=== PATIENT | female | born 1935 | race Caucasian/White ===

== ENCOUNTER 2016-05-09 23:55 | Inpatient (IN) | payer MEDICARE, OTHER ==
--- NOTE | ~2016-05-09 | HP ---
History And Physical [address] [place]. [address] NAME: GONZALEZ OVIEDO : 31 STATUS : ADM Pam PAT#: [id number] AGE: 81 ADM/REG DATE : 05/09/16 MR#: [id number] REPORT SERV DATE: 05/10/16 DICTATED BY: DELIA FLOYD DATE: 05/10/16 REPORT STATUS : Draft TRANSCRIBED BY: MODLalit DATE: 05/10/16 DATE OF ADMISSION: 05/09/2016 CHIEF COMPLAINT: An 81-year-old female presenting with cough. HISTORY OF PRESENTING ILLNESS: The patient's history was obtained through careful interview with the patient and daughter coupled with review of [facility] medical records. The patient first began to develop a cough just on 05/08/2016; it was productive of a clear but thick and stringy sputum. She has had increasing dyspnea on exertion as well. She has developed subjective fevers and chills, lightheadedness, dizziness, a decreased appetite with dryness of her mouth. Finally, on the day of admission, she became momentarily incoherent and states "I just felt I was in the twilight zone." She describes being achy all over with myalgias. She describes chronic back pain/lower back pain without radiation or sciatica, midline, 6/10 in severity, that comes and goes. She has chronic lower extremity edema that is no worse than usual. REVIEW OF SYSTEMS: Otherwise, a 14-point review of systems was obtained and was negative. PAST MEDICAL HISTORY: 1. Sarcoidosis with mediastinal lymphadenopathy. 2. Atrial fibrillation. 3. Pneumonia, 10/2015. 4. Diastolic congestive heart failure with chronic lower extremity edema. 5. Urinary tract infection. 6. Thoracic aortic aneurysm. 7. Bronchiectasis. 8. Interstitial fibrosis. 9. Sjogren's. 10.Hypothyroidism. 11.Colon polyps. PAST SURGICAL HISTORY: 1. Back surgery x3. 2. Hysterectomy. ALLERGIES: TO NABUMETONE, TRAMADOL, VIOXX, AND CELEBREX. History And Physical [address] [address] NAME: GONZALEZ OVIEDO : 31 STATUS : ADM Pam PAT#: [id number] AGE: 81 ADM/REG DATE : 05/09/16 MR#: [id number] REPORT SERV DATE: 05/10/16 DICTATED BY: DELIA FLOYD DATE: 05/10/16 REPORT STATUS : Draft TRANSCRIBED BY: TYLER DATE: 05/10/16 SOCIAL HISTORY: Quit smoking in the 1980s. No alcohol abuse. Lives on [place], [place], at [facility]. She ambulates with a walker. Has one daughter. Her son lives in [place]. FAMILY HISTORY: Includes heart disease. CURRENT MEDICATIONS: Include: 1. Eliquis 5 mg p.o. b.i.d. 2. Pulmicort inhaled twice a day. 3. Calcium with vitamin D. 4. Welchol 625 mg p.o. daily. 5. Colace. 6. Eyedrops. 7. Flovent. 8. Lasix 20 mg p.o. daily. 9. Avapro 75 mg p.o. b.i.d. 10.Levothyroxine 100 mcg p.o. daily. 11.Lidocaine patch. 12.Claritin 10 mg p.o. daily. 13.Mobic 7.5 mg p.o. daily. 14.Metoprolol 12.5 mg p.o. b.i.d. 15.Potassium 10 mEq p.o. daily. 16.Prednisone 5 mg p.o. daily. 17.Zoloft 25 mg p.o. daily. PHYSICAL EXAMINATION: VITAL SIGNS: Temperature 101.3, pulse 90, blood pressure 171/41, respiratory rate 20, and O2 saturation 94% on room air. GENERAL: A pleasant cooperative female. She appears in some distress secondary to coughing and shortness of breath. HEENT: Pupils equal, round, and reactive to light. No conjunctival pallor. No scleral icterus. Nares are patent. Oropharynx is clear of obstruction. Very dry mucous membranes. NECK: Trachea midline. No thyromegaly. LYMPH: No cervical lymphadenopathy. No supraclavicular lymphadenopathy. RESPIRATORY: Only scattered rhonchi on exam. No significant wheezes. No rhonchi otherwise. No rales. The patient has a nonlabored respiratory effort. CARDIOVASCULAR: Regular rate and rhythm. No murmurs, rubs, or gallops. No extremity edema is appreciated other than chronic changes. ABDOMEN: Soft, nontender, and nondistended. Normal bowel sounds auscultated throughout. No organomegaly. DERMATOLOGICAL: Warm and dry extremities. No pallor. No cyanosis. PSYCHIATRIC: A flat affect but claims to be in a good mood. Alert and oriented x3. LABORATORY DATA: White blood cell count 8.2, hemoglobin 14, hematocrit 41, and platelets 133. Sodium 138, potassium 4.1, chloride 105, bicarb 22, BUN 22, creatinine 2.88, and glucose 89. Procalcitonin negative. Lactic acid 0.8. Influenza negative. Liver enzymes within normal limits. ABG demonstrates pH of 7.45, a PaCO2 of 26, a PaO2 of 66, and a bicarb of 18 on room air. History And Physical [address] [address] NAME: GONZALEZ OVIEDO : 31 STATUS : ADM Pam PAT#: [id number] AGE: 81 ADM/REG DATE : 05/09/16 MR#: [id number] REPORT SERV DATE: 05/10/16 DICTATED BY: DELIA FLOYD DATE: 05/10/16 REPORT STATUS : Draft TRANSCRIBED BY: TYLER DATE: 05/10/16 STUDIES: 1. Chest x-ray, by my own evaluation, shows no acute abnormality and actually improved since 10/2015 chest x-ray. 2. EKG, by my own evaluation, shows atrial fibrillation, left axis deviation, left ventricular hypertrophy. ASSESSMENT AND PLAN: 1. Viral bronchitis, provide supportive care. 2. Fever, place on Tylenol. Negative influenza. Negative procalcitonin. Negative chest x-ray for infiltrate. 3. Chronic diastolic congestive heart failure, follow volume status. 4. Chronic fibrosis of the lungs with bronchiectasis. 5. Chronic atrial fibrillation, on Eliquis. 6. Sarcoidosis. KPL/MODL Delia Floyd M.D. / [id number] CC: Manuela Markham
--- NOTE | ~2016-05-09 | DS ---
Discharge Summary [id number] [place]. [address] NAME: GONZALEZ OVIEDO : 31 STATUS : DIS IN PAT#: [id number] AGE: 81 ADM/REG DATE : 05/10/16 MR#: [id number] REPORT SERV DATE: 05/14/16 DICTATED BY: DATE: REPORT STATUS : Draft TRANSCRIBED BY: MODL DATE: 05/13/16 ADMISSION DATE: 05/10/2016 DISCHARGE DATE: 05/13/2016 DISCHARGE DIAGNOSES: 1. Generalized weakness. 2. Diastolic heart failure. 3. Viral bronchiectasis. 4. Hypertension. 5. Chronic atrial fibrillation. CONSULTING PHYSICIANS: None. IMAGING STUDIES: Multiple portable chest x-rays, the last showing mild bibasilar linear atelectasis. Otherwise, no acute cardiopulmonary abnormality. She did have some cardiomegaly. DISCHARGE MEDICATIONS: Include Eliquis 5 mg p.o. b.i.d., Welchol 625 mg p.o. with lunch, Caltrate 600+ D 600 mg p.o. daily, vitamin D 2000 units p.o. daily, docusate 100 mg p.o. b.i.d., dorzolamide ophthalmic drops one drop t.i.d., Flovent HFA one puff b.i.d., Lasix 20 mg p.o. daily, Atrovent nasal spray two sprays in each nostril b.i.d., Synthroid 100 mcg p.o. daily, Lidoderm patch one patch topical daily, Claritin 10 mg p.o. daily, Mobic 7.5 mg p.o. daily, Lopressor 12.5 mg p.o. b.i.d., Zoloft 25 mg p.o. daily, prednisone 5 mg p.o. daily, budesonide 90 mcg two puffs inhalation b.i.d., Flovent Diskus, DuoNebs every four hours p.r.n. for shortness of breath/wheezing, Tylenol 650 mg p.o. every four hours p.r.n. for temp greater than 101, Zofran 4 mg p.o. sublingual every four hours p.r.n. for nausea, potassium chloride 10 mEq p.o. daily. HOSPITAL COURSE/PROBLEM LIST: 1. Viral bronchitis. Due to the patient's multiple comorbidities and respiratory issues, the patient was admitted for supportive care including nebulization and oxygen therapy. The patient feels like her respiratory status has improved. She is still coughing and has some wheezing; however, overall, she feels better. Her O2 sat is 97% on room air. Respiratory rate is 16. She does again have wheezing in her lung acevedo and I will continue her DuoNebs every four hours p.r.n. as needed. She is in no acute distress at this time and is requesting to go to [facility] for rehabilitation. 2. Diastolic heart failure. Continue the patient's metoprolol 12.5 mg p.o. b.i.d. as well as furosemide 20 mg p.o. daily. The patient is euvolemic at this time. No signs and symptoms of volume overload. 3. Hypertension. We will continue the patient's home medications, metoprolol and furosemide. Her blood pressure has been controlled in the hospital. Her last blood pressure was 123/57. 4. Chronic atrial fibrillation. The patient's heart rate is controlled with metoprolol p.o. and will also continue her Eliquis p.o. 5. Generalized weakness. The patient was evaluated by Physical Therapy and it was recommended for her to go to inpatient rehab. Therefore, we will discharge her to Discharge Summary [address] [address] NAME: GONZALEZ OVIEDO : 31 STATUS : DIS IN PAT#: [id number] AGE: 81 ADM/REG DATE : 05/10/16 MR#: [id number] REPORT SERV DATE: 05/14/16 DICTATED BY: DATE: REPORT STATUS : Draft TRANSCRIBED BY: MODL DATE: 05/13/16 [facility] today for acute rehabilitation prior to discharge to home. HANG/PETERL Seth Schuster NP / [id number] CC: MD Rodríguez Spaulding
[2016-05-09 22:21] LABS: BASOPHILS 0.2 %; BASOPHILS ABSOLUTE 0.02 10/3/uL (0.0-0.16); EOSINOPHILS 0.4 %; EOSINOPHILS ABSOLUTE 0.03 10/3/uL (0.0-0.53); HEMOGLOBIN 13.6 g/dL (12.0-16.0); IMMATURE GRANULOCYTES 0.2 %; IMMATURE GRANULOCYTES ABSOLUTE 0.02 10/3/uL (0.0-0.11); LYMPHOCYTES 18.5 %; LYMPHOCYTES ABSOLUTE 1.51 10/3/uL (0.67-4.30); MEAN CORPUS HGB CONC 33.5 g/dL (32.0-36.0); MEAN CORPUSCULAR HEMOGLOB 29.9 pg (26.0-34.0); MEAN CORPUSCULAR VOLUME 89.2 fL (80-100); MEAN PLATELET VOLUME 8.7 fL (9.2-13.0); MONOCYTES 11.8 %; MONOCYTES ABSOLUTE 0.96 10/3/uL (0.21-1.20); NEUTROPHILS 68.9 %; NEUTROPHILS ABSOLUTE 5.63 10/3/uL (2.02-8.40); RBC DISTRIBUTION WIDTH 14.8 % (12.0-16.0); RED CELL COUNT 4.55 10/6/uL (4.0-5.6)
[2016-05-09 22:29] LABS: ER CBC TAT 0 Hrs 15 Mins; HEMATOCRIT 40.6 % (36.0-48.0); MANUAL DIFF NO %; PLATELET COUNT 133 10/3/uL (150-400); WHITE BLOOD CELLS 8.2 10/3/uL (4.5-10.5)
[2016-05-09 22:38] LABS: BUN (BLOOD UREA NITROGEN) 22 MG/DL (6-23); CALCIUM, SERUM 9.1 MG/DL (8.5-10.4); CHLORIDE, SERUM 105 MMOL/L (96-112); CO2 (CARBON DIOXIDE) 22 MMOL/L (24-34); CREATININE 0.88 MG/DL (0.55-1.02); GFR AFRICAN AMERICAN 70 ML/MIN (>=60); GFR NON AFRICAN AMERICAN 61 ML/MIN (>=60); POTASSIUM, SERUM 4.1 MMOL/L (3.5-5.3); SGPT(ALT) 30 U/L (5-65); SODIUM, SERUM 138 MMOL/L (135-148); TOTAL BILIRUBIN 0.8 MG/DL (0-1.2)
[2016-05-09 22:40] LABS: ALBUMIN 3.6 G/DL (3.5-5.0); ALKALINE PHOSPHATASE 67 U/L (45-117); GLOBULIN 3.6 G/DL (2.5-4.1); GLUCOSE, SERUM 89 MG/DL (60-99); SGOT(AST) 30 U/L (5-40); TOTAL PROTEIN 7.2 G/DL (6.0-8.5)
[2016-05-09 22:54] LABS: BAND NEUTROPHILS 5 %; ER DIFF TAT 0 Hrs 40 Mins; LYMPHOCYTES 10 %; LYMPHOCYTES ABSOLUTE (CALC) 0.82 10/3/uL (0.67-4.30); MONOCYTES 10 %; MONOCYTES ABSOLUTE (CALC) 0.82 10/3/uL (0.21-1.20); NEUTROPHILS ABSOLUTE (CALC) 6.56 10/3/uL (2.02-8.40); PLATELET ESTIMATE SLT DEC (ADEQUATE); SEGMENTED NEUTROPHIL (0) 75 %; TOTAL NUCLEATED CELLS 100
[2016-05-09 23:49] LABS: PROCALCITONIN <0.05 ng/mL (<0.5)
[~2016-05-09 23:55] MED LIST: 8 HOUR650 MG PO; ATROVENTUD INH; AVAPRO75 PO; BIST PO; CALTRA600D PO; CLARIT10 PO; DORZOLAMIDE2 % OPH; FISH-EPA1000 MG PO; FLONASE NAS; FLOVENT110 INH; LEVOTHYROXIN112 MCG PO; LIDODERM TOP; MAX25 PO; MOBIC7.5 PO; NORCO1 TA1 PO; OSTEO BI-FLEX1 EACH PO; P5 PO; PREDNISONE2.5 MG PO; REFRES1 OPH; TEARS PURE OPH; VITAMIN D2000 UNIT PO; WELCHOL 625 MG625 MG PO; [UNRECOGNIZED DRUG - CODE] PO; [UNRECOGNIZED DRUG - OTHER] OPH
[2016-05-09 23:56] LABS: INFLUENZA A SCREEN NEGATIVE (NEGATIVE); INFLUENZA B SCREEN NEGATIVE (NEGATIVE)
[2016-05-10 00:13] LABS: LACTATE 0.8 MMOL/L (0.3-2.4)
[2016-05-10 02:25] LABS: ASCORBIC ACID (UR NOT ORDER) 20 (NEG); BILIRUBIN, URINE NEGATIVE (NEG); ER URINALYSIS TAT 0 Hrs 00 Mins; KETONE, URINE TRACE MG/DL (NEG); LEUKOCYTE ESTERASE(NOT OR NEG (NEG); WBC (NOT ORDERED) (RFLEX) 3 (0-5)
[2016-05-10 02:26] LABS: NITRITE (URINE) POS (NEG)
[2016-05-10] MEDS ORDERED: L20 PO (02:45)
[2016-05-10] MEDS ORDERED: MICRO-K10 MEQ PO (02:45)
[2016-05-10] MEDS ORDERED: VITAMIN D2000 UNIT PO (02:45)
[2016-05-10] MEDS ORDERED: TRUSOPT2 % OPH (02:46)
[2016-05-10] MEDS ORDERED: WELCHOL625 MG PO (02:47)
[2016-05-10] MEDS ORDERED: D.O.S.100 MG PO (02:47)
[2016-05-10] MEDS ORDERED: PULMICORT90 MCG INH (02:48)
[2016-05-10] MEDS ORDERED: CALTRA600D PO (02:48)
[2016-05-10] MEDS ORDERED: LEVOTHYROXIN100 MCG PO (02:49)
[2016-05-10] MEDS ORDERED: ELIQUIS 5 MG TAB5 MG PO (02:49)
[2016-05-10] MEDS ORDERED: LOP25 PO (02:50)
[2016-05-10] MEDS ORDERED: ATRONASAL3 NAS (02:51)
[2016-05-10] MEDS ORDERED: CLARIT10 PO (02:51)
[2016-05-10] MEDS ORDERED: ZOLOFT25 MG PO (02:53)
[2016-05-10] MEDS ORDERED: FLOVENT DISK100 MCG (02:53)
[2016-05-10] MEDS ORDERED: AVAPRO75 PO (02:53)
[2016-05-10] MEDS ORDERED: P5 PO (02:54)
[2016-05-10] MEDS ORDERED: MOBIC7.5 PO (02:55)
[2016-05-10] MEDS ORDERED: FLOVENT110 INH (02:55)
[2016-05-10] MEDS ORDERED: LIDODERM TOP (02:56)
[2016-05-10 11:52] LABS: HEMATOCRIT 35.6 % (36.0-48.0); HEMOGLOBIN 11.9 g/dL (12.0-16.0); MANUAL DIFF YES %; MEAN CORPUS HGB CONC 33.4 g/dL (32.0-36.0); MEAN CORPUSCULAR HEMOGLOB 29.8 pg (26.0-34.0); MEAN PLATELET VOLUME 8.7 fL (9.2-13.0); PLATELET COUNT 140 10/3/uL (150-400); RBC DISTRIBUTION WIDTH 14.9 % (12.0-16.0); WHITE BLOOD CELLS 5.2 10/3/uL (4.5-10.5)
[2016-05-10 12:00] LABS: INTERNATIONAL NORMAL RATI 1.5 UNITS (-)
[2016-05-10 12:02] LABS: PROTIME (NOT ORD) 18.3 SEC (12.0-14.5)
[2016-05-10 12:20] LABS: BAND NEUTROPHILS 3 %; LYMPHOCYTES 20 %; LYMPHOCYTES ABSOLUTE (CALC) 1.04 10/3/uL (0.67-4.30); MONOCYTES 10 %; MONOCYTES ABSOLUTE (CALC) 0.52 10/3/uL (0.21-1.20); NEUTROPHILS ABSOLUTE (CALC) 3.64 10/3/uL (2.02-8.40); SEGMENTED NEUTROPHIL (0) 67 %; TOTAL NUCLEATED CELLS 100
[2016-05-10 12:21] LABS: PLATELET ESTIMATE SLT DEC (ADEQUATE); RBC MORPHOLOGY NORM (NORMAL)
[2016-05-10 15:09] LABS: A/G RATIO 0.9 (0.7-1.9); ALBUMIN 3.2 G/DL (3.5-5.0); ALKALINE PHOSPHATASE 59 U/L (45-117); CALCIUM, SERUM 8.6 MG/DL (8.5-10.4); CHLORIDE, SERUM 104 MMOL/L (96-112); CO2 (CARBON DIOXIDE) 24 MMOL/L (24-34); CREATININE 0.94 MG/DL (0.55-1.02); GFR AFRICAN AMERICAN 65 ML/MIN (>=60); GFR NON AFRICAN AMERICAN 56 ML/MIN (>=60); GLOBULIN 3.4 G/DL (2.5-4.1); POTASSIUM, SERUM 3.9 MMOL/L (3.5-5.3); SGOT(AST) 21 U/L (5-40); SGPT(ALT) 23 U/L (5-65); SODIUM, SERUM 138 MMOL/L (135-148); TOTAL PROTEIN 6.6 G/DL (6.0-8.5); TROPONIN I 0.03 NG/ML (<0.05)
[2016-05-10 15:11] LABS: BUN (BLOOD UREA NITROGEN) 27 MG/DL (6-23); GLUCOSE, SERUM 107 MG/DL (60-99)
[2016-05-10 15:37] LABS: PROCALCITONIN 0.12 ng/mL (<0.5)
[2016-05-11 08:56] LABS: BE (BASE EXCESS) -4.2 MEQ/L (0 +/- 2.5); CARBOXYHEMOGLOBIN 1.4 % (0-3); HCO3 (ACTUAL BICARBONATE) 18.2 MEQ/L (23-27); INSTRUMENT SERIAL # 8087; METHEMOGLOBIN 0.1 % (0-3); O2 CONTENT 16.9 VOL% (18-24); OPERATOR ID 17537; PCO2 (CO2 TENSION) 26 MMHG (35-45); PO2 (O2 TENSION) 66 MMHG (79-93); SAMPLE Arterial; pH 7.46 (7.37-7.43)
[2016-05-12 05:15] LABS: CALCIUM, SERUM 8.9 MG/DL (8.5-10.4); CHLORIDE, SERUM 108 MMOL/L (96-112); CO2 (CARBON DIOXIDE) 23 MMOL/L (24-34); CREATININE 1.04 MG/DL (0.55-1.02); GFR AFRICAN AMERICAN 58 ML/MIN (>=60); GFR NON AFRICAN AMERICAN 50 ML/MIN (>=60); GLUCOSE, SERUM 86 MG/DL (60-99); POTASSIUM, SERUM 3.7 MMOL/L (3.5-5.3); SODIUM, SERUM 140 MMOL/L (135-148)
[2016-05-12 05:16] LABS: BUN (BLOOD UREA NITROGEN) 33 MG/DL (6-23)
== END 2016-05-13 15:31 | DRG 202 ==
LOC: ER 23:55 → 7NO 23:59
PROVIDERS: Hospitalist; Internal Medicine; Nurse Practitioner
DX: J20.8 Acute bronchitis due to other specified organisms (principal); I50.33 Acute on chronic diastolic (congestive) heart failure; D86.9 Sarcoidosis, unspecified; I48.2 Chronic atrial fibrillation; J47.9 Bronchiectasis, uncomplicated; I11.0 Hypertensive heart disease with heart failure; Z79.02 Long term (current) use of antithrombotics/antiplatelets; Z91.19 Patient's noncompliance with other medical treatment and regimen
CPT/HCPCS: 36600; 71010; 80048; 80053; 81001; 82805; 83605; 83735; 83880; 84145; 84443; 84484; 85025; 85610; 85730; 87040; 87449; 87804; 93005; 94640; 96365; 96375; 97161-GP; 99285; A9270-GY; J0456; J2930